=== PATIENT | male | born 1995 | race Caucasian/White ===

== ENCOUNTER 2016-05-11 16:21 | Emergency (ER) | payer OTHER ==
--- NOTE | ~2016-05-11 | CR142 ---
[facility] A Service of [facility] & [facility] RADIOLOGY TEXT RESULTS PATIENT: MAIK RICHARD LOCATION: SED : 95 UNIT #: [id number] AGE: [address]: Libia Tafoya APRN SEX: M ORDER DR: [id number] [address] [address] [id number] E MR#: [id number] Acc #: [id number] NAME: MAIK RICHARD : 1995 SEX: M STUDY DATE/TIME: 05/11/2016 16:22 UNIT: SED ROOM: STUDY DESCRIPTION: CR Hand Min 3 Views Rt Attending Physician: Libia Tafoya A.P.R.N. Ordering Physician: Libia Vidal A.P.R.N. Primary Care Physician: Avril Kaiser A.P.R.N. MEDICAL IMAGING REPORT This report is preliminary unless electronic signature is present. STUDY Right hand, 3 views HISTORY Tripped and fell over dog and down the stairs yesterday. FINDINGS 3 views are submitted. The examination shows a comminuted fracture of the fourth metacarpal with foreshortening of the digit. There is some overriding of the fracture fragment. Bony elements otherwise are intact. CONCLUSION Comminuted spiral fracture of the fourth metacarpal shaft. Dictated by... Merrill Correia M.D. THIS IS AN ELECTRONICALLY VERIFIED REPORT Merrill Correia M.D. at 05/13/2016 3:10 PM ALMA/rj TD: 05/11/2016 23:34 JOB #: [id number] MEDICAL IMAGING REPORT Page 1 of 1
[~2016-05-11 16:21] MED LIST: MOTRIN600 M1 PO; NO MEDICATIONS; TYLENOL #3 PO
== END 2016-05-11 16:55 | disposition home or self-care (01) ==
LOC: SED 16:21
DX: S62.324A Displaced fracture of shaft of fourth metacarpal bone, right hand, initial encounter for closed fracture (principal); Z88.0 Allergy status to penicillin; W01.0XXA Fall on same level from slipping, tripping and stumbling without subsequent striking against object, initial encounter; Y92.009 Unspecified place in unspecified non-institutional (private) residence as the place of occurrence of the external cause
CPT/HCPCS: 29125; 73130; 99283